=== PATIENT | female | born 1955 | race Caucasian/White ===

== ENCOUNTER 2019-04-15 08:58 | Outpatient (CLI) | payer OTHER, SELFPAY ==
--- NOTE | ~2019-04-15 | MM_ITS ---
EXAMINATION: MM screening nikunj BI w reyna HISTORY: Screening mammogram TECHNIQUE: Craniocaudal and mediolateral oblique 3-D tomosynthesis images were obtained and synthetic 2-D images were generated. CAD analysis was submitted and interpreted. COMPARISON: No prior mammogram is available for comparison at this institution. BREAST PARENCHYMAL COMPOSITION: There are scattered areas of fibroglandular density. FINDINGS: There is asymmetric density in the upper central right breast at mid depth. Diagnostic righ t mammogram is recommended, with ultrasound if required. Otherwise there is no evidence of suspicious mass, calcification, or architectural distortion to sugg est malignancy in either breast. There has been no suspicious interval change. IMPRESSION: 1. Asymmetry on the right 2. Diagnostic right mammogram is recommended, with ultrasound if required BI-RADS Category 0: Incomplete: Needs additional imaging evaluation. Reviewed, dictated and finalized at location A. [employer]
== END 2019-04-15 08:59 | disposition home or self-care (01) ==
PROVIDERS: PCP Nurse Practitioner; Visit Provider Nurse Practitioner
DX: Z12.31 Encounter for screening mammogram for malignant neoplasm of breast (principal)
CPT/HCPCS: 77063; 77067

== ENCOUNTER 2019-04-28 08:45 | Outpatient (CLI) | payer OTHER, SELFPAY ==
--- NOTE | ~2019-04-28 | MMUS_ITS ---
EXAMINATION: MM diagnostic nikunj RT w reyna, US breast RT limited HISTORY: Previous lung back to June right breast for benign mass. TECHNIQUE: Additional 3-D tomosynthesis images of the right breast were performed and synthetic 2-D i mages were generated. CAD analysis was submitted and interpreted. High resolution right breast ultras ound was performed. COMPARISON: Comparison to multiple prior studies sequentially, with oldest reviewed study dated 04/01. FINDINGS: MAMMOGRAPHIC FINDINGS: Breast composed of scattered areas of fibroglandular density. Focal asymmetry in the upper central as pect of the right breast is reidentified. No suspicious calcifications. No discrete mass. ULTRASOUND: Right breast ultrasound: At T10-11 o'clock, 10 cm from the nipple in the area of previous scarring there is heterogeneous hypo echoic soft tissue with posterior shadowing. This likely corresponds to the mammographic finding and most likely represents scarring/fibrosis from previous lumpectomy. At 3:00, 4 cm from the nipple, the re is an oval circumscribed hypoechoic mass measuring 7 x 3 x 5 mm. No significant posterior features . There are internal calcifications. No internal vascularity. IMPRESSION: 1. Probable benign findings of the right breast. 2. Recommend 6 month follow-up diagnostic right mammogram and ultrasound. BI-RADS category 3, probably benign findings. Reviewed, dictated and finalized at location A. IMPRESSION: 1. Probable benign findings of the right breast. 2. Recommend 6 month follow-up diagnostic right mammogram and ultrasound. BI-RADS category 3, probably benign findings.
== END 2019-04-28 08:46 | disposition home or self-care (01) ==
PROVIDERS: PCP Nurse Practitioner
DX: R92.8 Other abnormal and inconclusive findings on diagnostic imaging of breast (principal)
CPT/HCPCS: 76642; 77061; 77065; G0279

== ENCOUNTER 2019-12-11 09:47 | Outpatient (CLI) | payer OTHER, SELFPAY ==
--- NOTE | ~2019-12-11 | MMUS_ITS ---
EXAMINATION: MM diagnostic nikunj RT w reyna, US breast RT limited HISTORY: Six-month follow-up for probably benign right breast mass TECHNIQUE: Craniocaudal, mediolateral, and mediolateral oblique 3-D tomosynthesis images of the right breast were performed and synthetic 2-D images were generated. Spot compression views are also obtai jaya. CAD analysis was submitted and interpreted. High resolution limited right breast ultrasound was performed. COMPARISON: 04/28/2019, 04/15/2019, 04/01/2017, 08/31/2015, 07/06/2014, 11/21/2012 BREAST PARENCHYMAL COMPOSITION: There are scattered areas of fibroglandular density. FINDINGS: MAMMOGRAPHIC FINDINGS: An asymmetry in the middle third of the upper breast has a stable appearance compared to multiple eddie or examinations, consistent with a benign finding. Also present are stable masses in the middle third of the inner breast at the 2:00 and 3:00 locations. There is no suspicious mass, calcification, or a rchitectural distortion. ULTRASOUND: There is a stable 7 mm x 3 mm oval, circumscribed, parallel, hypoechoic mass with no posterior featur es or internal vascularity at the 3:00 location 4 cm from the nipple. IMPRESSION: 1. Stable, probably benign right breast mass. 2. Recommend 6 month follow-up right diagnostic mammogram and ultrasound. BI-RADS category 3, probably benign findings. Reviewed, dictated and finalized at location A. IMPRESSION: 1. Stable, probably benign right breast mass. 2. Recommend 6 month follow-up right diagnostic mammogram and ultrasound. BI-RADS category 3, probably benign findings.
== END 2019-12-11 09:48 | disposition home or self-care (01) ==
PROVIDERS: PCP Nurse Practitioner; Visit Provider Nurse Practitioner
DX: R92.8 Other abnormal and inconclusive findings on diagnostic imaging of breast (principal)
CPT/HCPCS: 76642; 77061; 77065; G0279

== ENCOUNTER 2020-05-31 09:02 | Outpatient (CLI) | payer OTHER, SELFPAY ==
--- NOTE | ~2020-05-31 | MMUS_ITS ---
EXAMINATION: MM diagnostic nikunj RT w reyna, US breast RT limited HISTORY: Six-month follow-up for probably benign right breast mass TECHNIQUE: Craniocaudal, mediolateral, and mediolateral oblique 3-D tomosynthesis images of the right breast were performed and synthetic 2-D images were generated. CAD analysis was submitted and interp reted. High resolution limited right breast ultrasound was performed. COMPARISON: 12/11/2019, 04/28/2019, 04/15/2019 BREAST PARENCHYMAL COMPOSITION: There are scattered areas of fibroglandular density. FINDINGS: MAMMOGRAPHIC FINDINGS: The previously described asymmetry in the middle third of the central breast is decreased in conspicu ity when compared to the prior examinations. A stable obscured, equal density mass is present in the middle third of the inner breast at the 3:00 location. No new mass, calcification, or architectural d istortion are identified ULTRASOUND: A 5 mm x 3 mm oval, circumscribed, parallel, hypoechoic mass with no posterior features or internal v ascularity at the 3:00 location 4 cm from the nipple is stable slightly decreased in size since the p rior examination. There has been no suspicious interval change. IMPRESSION: 1. Probably benign right breast mass. 2. Given one year of interval stability, recommend 12 month followup right diagnostic mammogram and u ltrasound. BI-RADS category 3, probably benign findings. Reviewed, dictated and finalized at location A. IMPRESSION: 1. Probably benign right breast mass. 2. Given one year of interval stability, recommend 12 month followup right diag nostic mammogram and ultrasound. BI-RADS category 3, probably benign findings.
== END 2020-05-31 09:03 | disposition home or self-care (01) ==
PROVIDERS: PCP Nurse Practitioner; Visit Provider Nurse Practitioner
DX: R92.8 Other abnormal and inconclusive findings on diagnostic imaging of breast (principal)
CPT/HCPCS: 76642; 77061; 77065; G0279

== ENCOUNTER 2020-07-25 12:55 | Outpatient (CLI) | payer OTHER, SELFPAY ==
--- NOTE | ~2020-07-25 | MM_ITS ---
EXAMINATION: MM screening nikunj BI w reyna HISTORY: Screening mammogram TECHNIQUE: Craniocaudal and mediolateral oblique 3-D tomosynthesis images were obtained and synthetic 2-D images were generated. CAD analysis was submitted and interpreted. COMPARISON: 05/31/2020, 12/11/2019, 04/28/2019, 04/15/2019, 04/01/2017 BREAST PARENCHYMAL COMPOSITION: There are scattered areas of fibroglandular density. FINDINGS: There is no evidence of suspicious mass, calcification, or architectural distortion to sugg est malignancy in either breast. There has been no suspicious interval change. IMPRESSION: 1. No mammographic evidence of malignancy. 2. Recommend routine screening mammography in one year. BI-RADS Category 1: Negative Reviewed, dictated and finalized at location A.
== END 2020-07-25 12:56 | disposition home or self-care (01) ==
LOC: CHSIMG 12:56
PROVIDERS: PCP Nurse Practitioner; Visit Provider Nurse Practitioner
DX: Z12.31 Encounter for screening mammogram for malignant neoplasm of breast (principal)
CPT/HCPCS: 77063; 77067

== ENCOUNTER 2021-11-01 11:44 | Outpatient (CLI) | payer MEDICARE, SELFPAY ==
--- NOTE | ~2021-11-01 | MM_ITS ---
EXAMINATION: MM screening [facility] BI w reyna HISTORY: Screening mammogram TECHNIQUE: Craniocaudal and mediolateral oblique 3-D tomosynthesis images were obtained and synthetic 2-D images were generated. CAD analysis was submitted and interpreted. COMPARISON: 07/25/2020, 05/31/2020, 12/11/2019, 04/28/2019 BREAST PARENCHYMAL COMPOSITION: There are scattered areas of fibroglandular density. FINDINGS: RIGHT BREAST: There is no suspicious mass, calcification, or architectural distortion to suggest sonia gnancy. There has been no significant interval change. LEFT BREAST: Asymmetry is present in the far posterior third of the breast in line with the nipple ax is on the mediolateral oblique view. IMPRESSION: 1. Left breast asymmetry. 2. Additional mammographic views and possible breast ultrasound are recommended. BI-RADS Category 0: Incomplete: Needs additional imaging evaluation. Reviewed, dictated and finalized at location A. IMPRESSION: 1. Left breast asymmetry. 2. Additional mammographic views and possible breast ultrasound are recommended . BI-RADS Category 0: Incomplete: Needs additional imaging evaluation.
== END 2021-11-01 11:45 | disposition home or self-care (01) ==
LOC: CHSIMG 11:46
PROVIDERS: PCP Family Medicine; Visit Provider Family Medicine
DX: Z12.31 Encounter for screening mammogram for malignant neoplasm of breast (principal)
CPT/HCPCS: 77063; 77067

== ENCOUNTER 2021-11-16 08:52 | Outpatient (CLI) | payer MEDICARE, SELFPAY ==
--- NOTE | ~2021-11-16 | MMUS_ITS ---
EXAMINATION: MM diagnostic nikunj LT w reyna, US breast LT limited HISTORY: Left breast asymmetry on screening mammogram TECHNIQUE: Additional 3-D tomosynthesis images of the left breast were performed and synthetic 2-D im ages were generated. CAD analysis was submitted and interpreted. High resolution limited left breast ultrasound was performed. COMPARISON: 11/01/2021, 07/25/2020, 04/15/2019 FINDINGS: MAMMOGRAPHIC FINDINGS: There is a subtle persistent asymmetry in the posterior third of the outer breast at the 3:00 locatio n 10 cm from the nipple. ULTRASOUND: There is an 8 mm x 4 mm oval, hypoechoic mass with possible angular margins, no posterior features, a nd no internal vascularity at the 2:00 location 9 cm from the nipple. IMPRESSION: 1. Indeterminate left breast mass. 2. Ultrasound-guided biopsy is recommended. BI-RADS category 4, suspicious findings. Reviewed, dictated and finalized at location B. IMPRESSION: 1. Indeterminate left breast mass. 2. Ultrasound-guided biopsy is recommended. BI-RADS category 4, suspicious findings.
== END 2021-11-16 08:53 | disposition home or self-care (01) ==
LOC: CHSIMG 08:53
PROVIDERS: PCP Family Medicine; Visit Provider Family Medicine
DX: R92.8 Other abnormal and inconclusive findings on diagnostic imaging of breast (principal)
CPT/HCPCS: 76642; 77061; 77065; G0279

== ENCOUNTER 2021-12-26 09:35 | Outpatient (CLI) | payer MEDICARE, SELFPAY ==
--- NOTE | ~2021-12-26 | MMUS_ITS ---
EXAMINATION: MM post biopsy invasive LT, US breast biopsy LT w image EXAMINATION: US GUIDED NEEDLE BIOPSY WITH VACUUM ASSISTANCE DATE: 12/26/2021 11:46 [employer] INDICATION: Left breast mass seen on prior ultrasound. Ultrasound-guided core biopsy is requested to evaluate for malignancy. TECHNIQUE AND FINDINGS: The risks and potential benefits of the procedure were discussed with the patient, and written inform ed consent was obtained. After sterile preparation of the left breast, 1% lidocaine was utilized for local anesthesia. 1% lidocaine with epinephrine was used for deep anesthesia. A 10G vacuum-assisted biopsy gun needle was advanced through to the outer edge of the region of inter est from a medial approach utilizing sonographic guidance. A total of 6 tissue core samples were obt ained through the lesion. An Inrad tissue marker clip was then placed at the biopsy site. Hemostasis was achieved. The patient tolerated procedure well and there was no evidence of immediate complication. The patien t was given verbal instructions partly is from the department. Left breast mammograms to document ti ssue marker clip placement. The tissue samples were submitted to surgical pathology for histologic an alysis. IMPRESSION: 1. Successful ultrasound-guided vacuum-assisted biopsy of left breast mass with tissue marker placem ent. Please refer to pathology report for histologic analysis. Reviewed, dictated and finalized at location A. [employer] IMPRESSION: 1. Successful ultrasound-guided vacuum-assisted biopsy of left breast mass wit h tissue marker placement. Please refer to pathology report for histologic anal ysis.
== END 2021-12-26 09:36 | disposition home or self-care (01) ==
PROVIDERS: PCP Family Medicine; Visit Provider Family Medicine
DX: N63.20 Unspecified lump in the left breast, unspecified quadrant (principal); R92.8 Other abnormal and inconclusive findings on diagnostic imaging of breast
CPT/HCPCS: 19083; 88305; 88342; A4648

== ENCOUNTER 2024-12-30 13:52 | Outpatient (CLI) | payer MEDICARE, SELFPAY ==
--- NOTE | ~2024-12-30 | MM_ITS ---
EXAMINATION: MM screening nikunj BI w reyna HISTORY: Screening TECHNIQUE: Craniocaudal and mediolateral oblique 3-D tomosynthesis images were obtained and synthetic 2-D images were generated. CAD analysis was submitted and interpreted. COMPARISON: Comparison to multiple prior studies sequentially, with oldest reviewed study dated , 04/15/2019 BREAST PARENCHYMAL COMPOSITION: Not Dense: There are scattered areas of fibroglandular density. FINDINGS: There is no evidence of suspicious mass, calcification, or architectural distortion to suggest malignancy in either breast. IMPRESSION: 1. No mammographic evidence of malignancy. 2. Recommend routine screening mammography in one year. BI-RADS Category 1: Negative Reviewed, dictated and finalized at location B. 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
--- OUTSIDE RECORDS SUMMARY | 2024-12-30 21:01 | XMS_ITS | Data Portability ---
Author Organization [facility] MARLEY[facility]inder Address [address] [place] [address] Care Team Providers Care Quality Rn Name Role Phone SHERYL CROSS Primary Care Provider [phone] Assessment No assessment recorded. Plan of Treatment Reminders Order Date Submit Date Provider Last Modified By Organization Details Last Modified Time Details Appointments None record ed. Lab CBC 2024 025 J LUIS [facility], [address] [place] [address], [address], 10:15:13 CMP, serum or plasma 2024 025 J LUIS [facility], [address] [place] [address], [place], [address], 10:15:11 lipid panel, serum 2024 025 J LUIS [facility], [address] [place] [address] 2, [place], [address], 10:15:10 HbA1c (hemog lobin A1c), blood 2024 025 J LUIS In-Office Order, Internal Use Only DO Not Attach Compendium DO Not Attach Compendium, Do Not Delete/merge, [id number] 15:55:22 influe nza virus A + B + SARS-C oV-2 (COVID 19) Ag panel, rapid IA, upper respir atory specim en 2024 025 luis armando In-Office Order, Internal Use Only DO Not Attach Compendium DO Not Attach Compendium, Do Not Delete/merge, [id number] 17:41:48 urinal ysis, dipsti ck 2023 [place] In-Office Order, Internal Use Only DO Not Attach Compendium DO Not Attach Compendium, Do Not Delete/merge, [id number] 10:26:14 Referral podiat rist referr al 2024 [facility] Arian Wallace DPM, [address] [place], [address], 5 11:30:32 gastro entero logist referr al 2024 [facility] [place], [address] [place] [address], [facility] [address], [place], [address], 5 11:30:25 Procedures None record ed. Surgeries None record ed. Imaging DEXA 2024 [facility], [address], [place], [place], [address], 5 15:44:02 MAMMO, screen ing, digita l, bilate ral 2024 025 [facility], [address] [place], [address], 5 09:54:33 MAMMO, screen ing, digita l, bilate ral 2023 024 [facility], [address] [place], [address], 5 11:28:29 Medication Orders amoxic illin 8[address] mg tablet [address] [facility] [place] [place], [address], 15:12:32 lisino pril [address] [facility] [place] [address] [place], [address], 15:12:38 Patient TargetsNo targets recorded. Patient Instructions Encounter Date Encounter Id Patient Instructions Last Modified By Organization Details Last Modified Time 01/06/2024 [id number] mammogram: about this test jnanney Not available 01/06/2024 10:07:10 A healthy lifestyle: care instructions jnanney Not available 01/06/2024 10:14:34 05/19/2024 [id number] A healthy lifestyle: care instructions jnanney Not available 05/19/2024 17:41:48 upper respirator y infection (cold): care instructions jnanney Not available 05/19/2024 17:41:48 06/01/2024 [id number] mammogram: about this test jnanney Not available 06/01/2024 15:23:53 learning about high blood pressure jnanney Not available 06/01/2024 14:58:31 body mass index: care instructions jnanney Not available 06/01/2024 14:58:31 learning about healthy weight jnanney Not available 06/01/2024 14:58:31 12/09/2024 [id number] A healthy lifestyle: care instructions jnanney Not available 12/09/2024 15:36:32 plantar warts: care instructions jnanney Not available 12/09/2024 15:43:17 12/24/2024 [id number] A healthy lifestyle: care instructions jnanney Not available 12/24/2024 17:01:09 lumbar spinal stenosis: care instructions jnanney Not available 12/24/2024 17:01:10 neurogenic bladder: care instructions jnanney Not available 12/24/2024 17:01:10 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 Referral for Screening for malignant neoplasm of colon Referring Physician: Sheryl Cross, Family Medicine, Encounter Date: 12/09/2024 Pediatrician Referral for Verr uca plantaris Referring Physician: Sheryl Nanney, Family Medicine, Encounter Date: 12/09/2024 Results Created Date Observation Date Name Description Value Unit Range Abnormal Flag Note LastModifiedBy Organization Detail LastModifiedTime 01/06/2001/06/2024 urina lysis , dipst ick Leukocytes Negati ve Not Available In-Office Order Internal Use Only DO Not Attach Compendium DO Not Attach Compendium, Do Not Delete/merge, 01/06/2024 10:13:07 01/06/2001/06/2024 urina lysis , dipst ick Nitrite negati ve Not Available In-Office Order Internal Use Only DO Not Attach Compendium DO Not Attach Compendium, Do Not Delete/merge, 01/06/2024 10:13:07 01/06/2001/06/2024 urina lysis , dipst ick Urobilinogen .2 Not Available In-Of fice Order Internal Use Only DO Not Attach Compendium DO Not Attach Compendium, Do Not Delete/merge, 01/06/2024 10:13:07 01/06/2001/06/2024 urina lysis , dipst ick Protein Negati ve Not Available In-Office Order Internal Use Only DO Not Attach Compendium DO Not Attach Compendium, Do Not Delete/merge, 01/06/2024 10:13:07 01/06/2001/06/2024 urina lysis , dipst ick pH 6.0 Not Available In-Office Order Internal Use Only DO Not Attach Compendium DO Not Attach Compendium, Do Not Delete/merge, 01/06/2024 10:13:07 01/06/2001/06/2024 urina lysis , dipst ick Blood Negati ve Not Available In-Office Order Internal Use Only DO Not Attach Compendium DO Not Attach Compendium, Do Not Delete/merge, 01/06/2024 10:13:07 01/06/2001/06/2024 urina lysis , dipst ick Specific [place] 1.020 Not Available In-Off ice Order Internal Use Only DO Not Attach Compendium DO Not Attach Compendium, Do Not Delete/merge, 01/05/2024 10:13:07 01/06/20 24 01/06/2024 urina lysis , dipst ick Ketone Negati ve Not Available In-Office Order Internal Use Only DO Not Attach Compendium DO Not Attach Compendium, Do Not Delete/merge, [facility] 01/06/2024 10:13:07 01/06/20 24 01/06/2024 urina lysis , dipst ick Bilirubin Negati ve Not Available In-Office Order Internal Use Only DO Not Attach Compendium DO Not Attach Compendium, Do Not Delete/merge, [facility] 01/06/2024 10:13:07 01/06/20 24 01/06/2024 urina lysis , dipst ick Glucose Negati ve Not Available In-Office Order Internal Use Only DO Not Attach Compendium DO Not Attach Compendium, Do Not Delete/merge, [facility] 01/06/2024 10:13:07 01/06/20 24 01/06/2024 urina lysis , dipst ick Appearance Clear Not Available In-Offi ce Order Internal Use Only DO Not Attach Compendium DO Not Attach Compendium, Do Not Delete/merge, [facility] 01/06/2024 10:13:07 01/06/20 24 01/06/2024 urina lysis , dipst ick Color Yellow Not Available In-Office Order Internal Use Only DO Not Attach Compendium DO Not Attach Compendium, Do Not Delete/merge, [facility] 01/06/2024 10:13:07 05/20/19 25 05/19/2024 influ nishant virus A + B + SARS- CoV-2 (COVI D19) Ag panel , rapid IA, upper respi rator y speci men Flu A negati ve Not Available In-Office Order Internal Use Only DO Not Attach Compendium DO Not Attach Compendium, Do Not Delete/merge, [facility] 05/19/2024 16:54:58 05/20/19 25 05/19/2024 influ nishant virus A + B + SARS- CoV-2 (COVI D19) Ag panel , rapid IA, upper respi rator y speci men Flu B negati ve Not Available In-Office Order Internal Use Only DO Not Attach Compendium DO Not Attach Compendium, Do Not Delete/merge, [id number] 05/19/2024 16:54:58 05/20/1905/19/2024 influ nishant virus A + B + SARS- CoV-2 (COVI D19) Ag panel , rapid IA, upper respi rator y speci men Rapid SARS CoV 2 Ag, QL IA, respiratory specimen negati ve Not Available In-Office Order Internal Use Only DO Not Attach Compendium DO Not Attach Compendium, Do Not Delete/merge, [id number] 05/19/2024 16:54:58 12/10/1912/10/2024 LIPID PANEL cholesterol, total 270 mg/dL 100-19 9 above high normal Not Available [facility] ([facility]) [address] [place], [address], 12/10/2024 10:15:10 12/10/19 25 12/10/2024 LIPID PANEL triglyceride s 184 mg/dL 0-149 above high normal Not Available [facility] ([facility]) [address] [place], [address], 12/10/2024 10:15:10 12/10/19 25 12/10/2024 LIPID PANEL HDL cholesterol 65 mg/dL >39 Not Available [facility] ([facility]) [address] [place], [address], 12/10/2024 10:15:10 12/10/19 25 12/10/2024 LIPID PANEL VLDL cholesterol teri 34 mg/dL 5-40 Not Available [facility] ([facility]) [address] [place], [address], 12/10/2024 10:15:10 12/10/19 25 12/10/2024 LIPID PANEL LDL chol calc ([facility]) 171 mg/dL 0-99 above high normal Not Available [facility] ([facility]) [address] [place], [address], 12/10/2024 10:15:10 10/29/12/09/2024 COMP. METAB OLIC PANEL (14) interpretati on: COMMEN T GFR estim ate at the follo wing level for >or=3 month s is class ified as follo ws: GFR WITH KIDNE Y DAMAG E WITHO UT KIDNE Y DAMAG E >or=9 0 Stage 1 Lola l 60-89 Stage 2 Decr eased GFR 30-59 Stage 3 Stage 3 15-29 Stage 4 Stage 4 <15 (or dialy sis) Stage 5 Stage 5 Estim ated GFR will over estim ate true GFR if serum creat inine is risin g as in acute renal failu re and will under estim ate true GFR if serum creat inine is decli orlin as in resol ving acute renal failu re. Addit ional infor zhou braun may be found at www.k doqi. org. Not Available [facility] ([facility]) [address] [place], [address], 12/10/2024 10:15:11 12/10/19 25 12/10/2024 COMP. METAB OLIC PANEL (14) glucose 95 mg/dL 70-99 Not Available [facility] ([facility]) [address] [place], [address], 12/10/2024 10:15:11 12/10/19 25 12/10/2024 COMP. METAB OLIC PANEL (14) BUN 14 mg/dL 8-27 Not Available [facility] ([facility]) [address] [place], [address], 12/10/2024 10:15:11 12/10/19 25 12/10/2024 COMP. METAB OLIC PANEL (14) creatinine 0.87 mg/dL 0.57-1 .00 Not Available [facility] ([facility]) [address] [place], [address], 12/10/2024 10:15:11 12/10/19 25 12/10/2024 COMP. METAB OLIC PANEL (14) eGFR 73 mL/mi n/1.7 3 >59 Not Available [facility] ([facility]) [address] [facility], [place], [address], 12/10/2024 10:15:11 12/10/19 25 12/10/2024 COMP. METAB OLIC PANEL (14) BUN/creatini ne ratio 16 12-28 Not Available [facility] ([facility]) [address] [facility], [place], [address], 12/10/2024 10:15:11 12/10/19 25 12/10/2024 COMP. METAB OLIC PANEL (14) sodium 139 mmol/ L 134-14 4 Not Available [facility] ([facility]) [address] [facility], [place], [address], 12/10/2024 10:15:11 12/10/19 25 12/10/2024 COMP. METAB OLIC PANEL (14) potassium 4.2 mmol/ L 3.5-5. 2 Not Available [facility] ([facility]) [address] [facility], [place], [address], 12/10/2024 10:15:11 12/10/19 25 12/10/2024 COMP. METAB OLIC PANEL (14) chloride 103 mmol/ L 96-106 Not Available [facility] ([facility]) [address] [facility], [place], [address], 12/10/2024 10:15:11 12/10/19 25 12/10/2024 COMP. METAB OLIC PANEL (14) carbon dioxide, total 24 mmol/ L 20-29 Not Available [facility] ([facility]) [address] [facility], [place], [address], 12/10/2024 10:15:11 12/10/19 25 12/10/2024 COMP. METAB OLIC PANEL (14) calcium 9.5 mg/dL 8.7-10 .3 Not Available [facility] ([facility]) [address] [facility], [place], [address], 12/10/2024 10:15:11 12/10/19 25 12/10/2024 COMP. METAB OLIC PANEL (14) protein, total 7.1 g/dL 6.0-8. 5 Not Available [facility] ([facility]) [address] [facility], [place], [address], 12/10/2024 10:15:11 12/10/19 25 12/10/2024 COMP. METAB OLIC PANEL (14) albumin 4.6 g/dL 3.9-4. 9 Not Available [facility] ([facility]) [address] [facility], [place], [address], 12/10/2024 10:15:11 12/10/19 25 12/10/2024 COMP. METAB OLIC PANEL (14) globulin, total 2.5 g/dL 1.5-4. 5 Not Available [facility] ([facility]) [address] [facility], [place], [address], 12/10/2024 10:15:11 12/10/19 25 12/10/2024 COMP. METAB OLIC PANEL (14) bilirubin, total 0.4 mg/dL 0.0-1. 2 Not Available [facility] ([facility]) [address] [facility], [place], [address], 12/10/2024 10:15:11 12/10/19 25 12/10/2024 COMP. METAB OLIC PANEL (14) alkaline phosphatase 93 IU/L 49-135 Not Available [facility] ([facility]) [address] [facility], [place], [address], 12/10/2024 10:15:11 12/10/19 25 12/10/2024 COMP. METAB OLIC PANEL (14) AST (SGOT) 32 IU/L 0-40 Not Available [facility] ([facility]) [address] [facility], [place], [address], 12/10/2024 10:15:11 12/10/1912/10/2024 COMP. METAB OLIC PANEL (14) ALT (SGPT) 44 IU/L 0-32 above high normal Not Available [facility] ([facility]) [address] [facility], [place], [address], 12/10/2024 10:15:11 12/10/19 25 12/10/2024 CARDI OVASC ULAR REPOR T interpretati on Note Suppl ement al repor t is avail able. Not Available [facility] ([facility]) [address] [facility], [place], [address], 12/10/2024 10:15:12 12/10/1912/10/2024 CARDI OVASC ULAR REPOR T pdf . Not Available [facility] ([facility]) [address] [facility], [place], [address], 12/10/2024 10:15:12 12/10/1912/10/2024 CBC, PLATE LET, NO DIFFE RENTI AL WBC 7.4 x10e3 /uL 3.4-10 .8 Not Available [facility] ([facility]) [address] [facility], [place], [address], 12/10/2024 10:15:13 12/10/1912/10/2024 CBC, PLATE LET, NO DIFFE RENTI AL RBC 4.18 x10e6 /uL 3.77-5 .28 Not Available [facility] ([facility]) [address] [facility], [place], [address], 12/10/2024 10:15:13 12/10/1912/10/2024 CBC, PLATE LET, NO DIFFE RENTI AL hemoglobin 15.3 g/dL 11.1-1 5.9 Not Available [facility] ([facility]) [address] [facility], [place], [address], 12/10/2024 10:15:13 12/10/19 25 12/10/2024 CBC, PLATE LET, NO DIFFE RENTI AL hematocrit 44.1 % 34.0-4 6.6 Not Available [facility] ([facility]) [address] [facility], [place], [address], 12/10/2024 10:15:13 12/10/1912/10/2024 CBC, PLATE LET, NO DIFFE RENTI AL MCV 106 fL 79-97 above high normal Not Available [facility] ([facility]) [address] [facility], [place], [address], 12/10/2024 10:15:13 12/10/1912/10/2024 CBC, PLATE LET, NO DIFFE RENTI AL MCH 36.6 pg 26.6-3 3.0 above high normal Not Available [facility] ([facility]) [address] [facility], [place], [address], 12/10/2024 10:15:13 12/10/1912/10/2024 CBC, PLATE LET, NO DIFFE RENTI AL MCHC 34.7 g/dL 31.5-3 5.7 Not Available [facility] ([facility]) [address] [facility], [place], [address], 12/10/2024 10:15:13 12/10/1912/10/2024 CBC, PLATE LET, NO DIFFE RENTI AL RDW 12.0 % 11.7-1 5.4 Not Available [facility] ([facility]) [address] [facility], [place], [address], 12/10/2024 10:15:13 12/10/1912/10/2024 CBC, PLATE LET, NO DIFFE RENTI AL platelets 282 x10e3 /uL 150-45 0 Not Available [facility] ([facility]) [address] [facility], [place], [address], 12/10/2024 10:15:13 12/10/19 25 12/09/2024 HbA1c (hemo globi n A1c), blood HbA1C 5.6 % Not Available In-Office Order Internal Use Only DO Not Attach Compendium DO Not Attach Compendium, Do Not Delete/merge, [id number] 12/09/2024 15:34:58 12/31/1912/30/2024 sara CESPEDES, sherly al, leticia fierro No observ ation record ed. [facility] [address] [place], [address], 12/30/2024 20:31:17 Result Notes None recorded. Problems No Known Problems Medical Equipment None Reported. Allergies No known drug allergies Medications Name Sig Start Date Stop Date Status Note LastModified by Organization Details LastModified Time atorvastati n 20 mg tablet TAKE 1 TABLET BY MOUTH ONCE DAILY active Not Available Not Available No t Available lisinopril 20 mg tablet TAKE 1 TABLET BY MOUTH ONCE DAILY FOR 90 DAYS 12/09 completed did not take Not Available Not Available Not Available amoxicillin 875 mg tablet TAKE 1 TABLET BY MOUTH EVERY 12 HOURS FOR 10 DAYS 12/09 completed Not Available Not Available Not Available gabapentin 300 mg capsule Take 1 capsule by mouth 4 times daily 2024 active Not Available Not Available Not Avai lable methylpredn isolone 4 mg tablets in a dose pack TAKE BY MOUTH DIRECTED ON INSIDE OF PACKAGE 07/31 completed Not Available Not Available Not Available azithromyci n 500 mg tablet TAKE 1 TABLET BY MOUTH ONCE DAILY FOR 3 DAYS 01/05 completed Not Available Not Available Not Available ezetimibe 10 mg tablet TAKE 1 TABLET BY MOUTH ONCE DAILY 07/18 completed Not favio agudelo sn't have any Not Available Not Available Not Available fenofibrate 160 mg tablet TAKE 1 TABLET BY MOUTH ONCE DAILY FOR 90 DAYS 01/05 completed Not Available Not Available Not Available oxygen 12/24 completed Not Available Not Available Not Available Vitals Date Recorded Body height Body mass index (BMI) Body weight Oxygen saturation Oxygen saturation in Arterial blood by Pulse oximetry Heart rate Respiratory rate Body temperature Systolic And Diastolic Provider Name and Address Organization Details Last Updated DateTime 154.94 cm 27.6 kg/m2 32114.4 9 g 97 % 97 % 83 /min 14 /min 98.1 [degF] 144/84 mm[Hg] Roseanne Burns MA [facility] 5 17:01:28 Date Recorded Body height Body mass index (BMI) Body weight Oxygen saturation Oxygen saturation in Arterial blood by Pulse oximetry Heart rate Systolic And Diastolic Provider Name and Address Organization Details Last Updated DateTime 5 154.94 cm 30.4 kg/m2 25686.3 7 g 97 % 97 % 78 /min 150/100 mm[Hg] Shelley Figueroa MA [facility] 5 14:48:39 Date Recorded Body height Body mass index (BMI) Body weight Oxygen saturation Oxygen saturation in Arterial blood by Pulse oximetry Heart rate Systolic And Diastolic Provider Name and Address Organization Details Last Updated DateTime 5 154.94 cm 29.9 kg/m2 70933.5 9 g 97 % 97 % 103 /min 132/82 mm[Hg] MAINOR Fields [facility] 5 15:13:49 Date Recorded Body height Body mass index (BMI) Body weight Oxygen saturation Oxygen saturation in Arterial blood by Pulse oximetry Heart rate Systolic And Diastolic Provider Name and Address Organization Details Last Updated DateTime 5 154.94 cm 29.9 kg/m2 54902.5 9 g 98 % 98 % 78 /min 124/80 mm[Hg] MAINOR Fields [facility] 5 16:15:11 Date Recorded Body height Body mass index (BMI) Body weight Oxygen saturation Oxygen saturation in Arterial blood by Pulse oximetry Heart rate Systolic And Diastolic Provider Name and Address Organization Details Last Updated DateTime 4 154.94 cm 28.7 kg/m2 33270.0 4 g 97 % 97 % 84 /min 140/86 mm[Hg] Shelley Figueroa MA [facility] 4 10:03:59 Social History Question Answer Notes LastModified by Organizat ion Details LastModified Time Tobacco Smoking Status Current Every Day Smoker Angie Bolton MA [facility], [facility] 07/17/2022 12:03:27 Are You Blind Or Do You Have Difficulty Seeing? No Information not available 07/17/2022 What Is Your Level Of Caffeine Consumption? Moderate 1 Cup A Day Information not available 07/17/2022 In The 14 Days Before Symptom Onset, Have You Had Close Contact With A Laboratory-confir med COVID-19 While That Case Was Ill? No Information not available 07/17/2022 In The 14 Days Before Symptom Onset, Have You Had Close Contact With A Person Who Is Under Investigation For COVID-19 While That Person Was Ill? No Information not available 07/17/2022 Have You Been To An Area Known To Be High Risk For COVID-19? No Information not available 07/17/2022 Are You Deaf Or Do You Have Serious Difficulty Hearing? No Information not available 07/17/2022 What Type Of Diet Are You Following? REGULAR Information not available 07/17/2022 Are There Any Guns Present In Your Home? No Information not available 07/17/2022 What Was The Date Of Your Most Recent Tobacco Screening? 12/24/2024 Information not available 12/24/2024 How Many Children Do You Have? 0 Information not available 07/17/2022 What Is Your Relationship Status? Information not available 07/17/2022 Do You Use Your Seat Belt Or Car Seat Routinely? Yes Information not available 07/17/2022 Are You Sexually Active? Yes Information not available 07/17/2022 Do You Have Smoke And Carbon Monoxide Detectors In Your Home? Yes Information not available 07/17/2022 Are You Passively Exposed To Smoke? No Information no t available 07/17/2022 How Much Tobacco Do You Smoke? 1 PPD Little Less Information not available 07/17/2022 Do You Use Sunscreen Routinely? No Information not available 07/17/2022 Has Tobacco Cessation Counseling Been Provided? Yes Information not available 07/17/2022 On What Date Was Tobacco Cessation Counseling Provided? 12/24/2024 Information not available 12/24/2024 Sex: Female Functional Status Question Answer Note LastModified by Organizat ion Details LastModified Time Do you use any illicit or recreational drugs? No Information not available 07/17/2022 Do you or have you ever used any other forms of tobacco or nicotine? No [email or web address] Information not available 01/06/2024 What is your level of alcohol consumption? Occasional Information not available 07/17/2022 Are you currently employed? Yes Information not available 07/17/2022 Are you able to care for yourself independently? Yes Information not available 07/17/2022 What is your occupation? [employer] Information not available 07/17/2022 What is your exercise level? None Information not available 07/17/2022 Mental Status Question Answer Note LastModified by Organization D etails LastModified Time Do you feel stressed (tense, restless, nervous, or anxious, or unable to sleep at night)? [id number] Information not available 07/17/2022 Family History Relationship Description Onset Age of this Age Resolved Age Notes LastModified by Organization Details LastModified Time Brother Diabetes mellitus [email or web address] Not available 07/2022 12:02:20 Medical History Condition Response Coronary Artery Disease N Other N Atrial Fibrillation N High Blood Pressure N Thyroid Problems N Kidney or Bladder Problems N Depression N COPD N Blood Clots N GI Problems N Skin Problems N Eating Disorder N Anemia N Heart Attack (OK) N Diabetes N Anxiety Disorder N Muscle, Joint, or Bone Problems N Seizures/Epilepsy N Acid Reflux (GERD) N Cancer N Stroke N Allergies N Asthma N ADHD N Substance Abuse N High Cholesterol Y Hepatitis N Liver Disease N Schizophrenia N Headaches N Osteoporosis N Heart Failure N Gynecological History Statement/Question Response Date of Last Mammogram Obstetrics History GPAL:G 0 P 0 0 0 0 Past Encounters Encounter ID Performer Location Encounter Start Date Encounter Closed Date Diagnosis/Indication Diagnosis SNOMED-CT Code Diagnosis ICD10 Code Diagnosis IMO Codes Diagnosis Note [id number] Sheryl Cross PA-C [facility] [address] [place] [address] 07/17/2022 11:47:22 07/18/2022 08:42:39 Mixed hyperlipidemia 022591809 E78.2 Plantar wa rt of left foot 7215047671 0649866 B07.0 Overweight 536116786 E66 .3 Acute bron chitis with bronchospasm 57564864 J20.8 [id number] Luc Michelle MD [facility] [address] [place] [address] 07/31/2022 13:44:53 08/01/2022 08:40:22 Mixed hyperlipidemia 862129963 E78.2 Spinal giovanni nosis of lumbar region 51536601 M48.834 [id number] Sheryl Cross PA-C [facility] [address] [place] [address] 03/01/2023 14:33:48 03/04/2023 16:50:41 Lumbar radiculopathy 117000051 M54.16 History of spinal fusion 0630664831 9107 Z98.1 Overweight 465317401 E66 .3 [id number] Luc Michelle MD [facility] [address] [place] [address] 07/23/2023 14:12:45 07/24/2023 08:01:47 Acute upper respiratory infection 46880572 J00 Overweight 075572223 E66 .3 Essential hypertension 75264243 I10 Lumbar radiculopathy 128 455611 M54.16 hx of previous fusion [id number] Luc Michelle MD [facility] [address] [place] [address] 01/06/2024 09:54:22 01/14/2024 12:00:33 Screening mammography 87880829 Z12.31 Pain radia ting to right flank 127176086 R10.11 Overweight 321234976 E66 .3 [id number] Luc Michelle MD [facility] [address] [place] [address] 05/19/2024 16:49:50 05/20/2024 15:17:34 Nasal congestion 49543301 R09.81 Influenza- like illness 95323625 B34.9 Overweight 942256260 E66 .3 Upper resp iratory infection 02721392 J00 [id number] Luc Michelle MD [facility] [address] [place] [address] 06/01/2024 14:30:01 06/05/2024 07:47:13 Screening mammography 21878926 Z12.31 5984981 Recurrent acute maxillary sinusitis [id number] 1662388 J01.01 9989906 Essential hypertension 49522715 I10 13498 BP too high..star t this and follow up in 2 weeks Body mass index 30+ - obesity 796582020 E66.9 5357263 [id number] Sheryl Cross PA-C [facility] [address] [place] [address] 12/09/2024 15:03:59 12/11/2024 14:32:09 Lumbosacral radiculopathy 2612364 M54.17 94252 hx of previous fusion Screening for osteoporosis 109735718 Z13.820 898972 post menopausal Screening for malignant neoplasm of colon 610041200 Z12.11 898417 Mixed hyperlipidemia 267 425929 E78.2 05114 Overweight in adulthood with body mass index of 25 or more but less than 30 576166537 E66.3 Z68.29 1494120276 Verruca plantaris 828034 08 B07.0 13138 [id number] Sheryl Cross PA-C [facility] [address] [place] [address] 12/24/2024 15:44:05 12/25/2024 15:37:10 Spinal stenosis of lumbar region 30404381 M48.062 320849 Neurogenic urinary bladder 968602308 N31.9 146443 Overweight in adulthood with body mass index of 25 or more but less than 30 264757094 E66.3 Z68.29 [id number] Health Concerns Section Related Observation LastModified by Organization Detai ls LastModified Time None Recorded Concern Status LastModified by Organization Details LastModified Time None Recorded Advance Directives Directive None Recorded Payers Insurance Date Sequence Insurance Name Policy Number Policy Dixon Covered Member ID Dixon Member ID Guarantor Name 12/23/2024 1 [facility] (MEDICARE REPLACEMENT/ ADVANTAGE - HMO) [id number] Prisca Pederson [id number] Prisca Pederson Notes Date Note Type Note Provider Name and Address Organization Details Recorded Time 01/06/2024 text/html ROS as noted in the HPI rt side abdominal pain...woke her from sleep...eventually went away...following night started again..lasted longer and was worse....last and Saturday ...never during the day Sheryl Cross PA-C Attn: Accounting, [address] [place], [address], [place] [facility] 01/06/2024 10:15:42 05/19/2024 text/html ROS as noted in the HPI flu like symptoms for a week... no cough but did have fever Sheryl Cross PA-C Attn: [address], [address] [place], [place], [address] [place] [address], [place] [facility] 05/19/2024 17:42:44 06/01/2024 text/html ROS as noted in the HPI was good for a couple days after URI then sinuses shut down again..slight headache..stuffed nose..productive cough no sore throat Sheryl Cross PA-C Attn: Accounting, [address] [place], [place], [address] [place] [address], [place] [facility] 06/01/2024 14:59:28 12/09/2024 text/html ROS as noted in the HPI needs gabapentin refilled...also did not take blood pressure meds and BP is still 132/82...needs labs..has mamm sched next week..needs colonoscopy...also plantars warts needs removed Sheryl Cross PA-C Attn: Accounting, [address] [place], [place], [address] [place] [address], [place] [facility] 12/09/2024 15:43:37 12/24/2024 text/html ROS as noted in the HPI has lumbar radiculopathy requiring neuro surgery...hx of prior fusion..now has arthritis....the thought of surgery is not great for her but her pain is such that she cannot sit for extended periods...also has a neurogenic bladder... Sheryl Cross PA-C Attn: [employer]ing, [address] [place], [place], [address] [place] [address], [place] [facility] 12/24/2024 17:01:44 OBGyn Episode No OBEpisode recorded.
--- OUTSIDE RECORDS SUMMARY | 2024-12-30 21:01 | XMS_ITS | Encounter Summary ---
Author Organization [employer] Care Team Providers Care Indian Blanket Weaver Name Role Phone Tay Juan Elver MITCHELL Primary Care Provider [phone] Encounter Details Date Type Department Care Team (Latest Contact Info) Description 12/30/2024 Travel Social History Tobacco Use Types Packs/Day Years Used Date Smoking Tobacco: Every Day Cigarettes Smokeless Tobacco: Never Alcohol Use Standard Drinks/Week Comments Yes 3 (1 standard drink = 0.6 oz pur e alcohol) Comments Unknown Sex and Gender Information Value Date Recorded Sex Assigned at Not on file Legal Sex Female 8:03 AM CDT Gender Identity Not on file Sexual Orientation Not on file documented as of this encounter Functional Status * Height and Weight Question Answer Date of Assessment Author Height 61 12/30/2024 10:47 AM Tonya Mahmood RN Weight 2528 12/30/2024 10:47 AM Tonya Mahmood RN BMI (Calculated) 29.9 12/30/2024 10:47 AM Tonya Mahmood RN Weight Method Stated 12/30/2024 10:47 AM Tonya Lopez RN * BSA (Calculated - sq m) Answer Date of Assessment Author 1.76 12/30/2024 10:47 AM Ryder Mahmood RN * Medical Decision Maker Assessment Answer Date of Assessment Author Patient is medical decision-maker 12/30/2024 10: 47 AM Tonya Mahmood RN * Power of Catalyst Impregnator for Health Care (POA-HC) Answer Date of Assessment Author No POA-HC form, education pr ovided and assistance offered. 12/30/2024 10:47 AM Tonya Mahmood RN * Do Not Resuscitate (DNR) Answer Date of Assessment Author No DNR form present 12/30/2024 10:47 AM Tonya Mahmood RN * [place] DNR/Physician Orders for Life Sustaining Treatment (POLST) or [place] Physician Orders for Scope of Treatment (POST) Answer Date of Assessment Author No POLST/POST form present 12/30/2024 10:[address] Tonya Gee RN * Living Will Answer Date of Assessment Author No Living Will present 12/30/2024 10:47 AM FIELD ENGINEER H andTonya RN * Question Answer Date of Assessment Author BMI (Calculated) 29.9 12/30/2024 10:47 AM Tonya Mahmood RN Weight Method Stated 12/30/2024 10:47 AM Tonya Lopez RN * Medical Decision Maker Assessment Answer Date of Assessment Author Patient is medical decision-maker 12/30/2024 10: 47 AM Tonya Mahmood RN * Power of Catalyst Impregnator for Health Care (POA-HC) Answer Date of Assessment Author No POA-HC form, education pr ovided and assistance offered. 12/30/2024 10:47 AM Tonya Mahmood RN * Do Not Resuscitate (DNR) Answer Date of Assessment Author No DNR form present 12/30/2024 10:47 AM Tonya Mahmood RN * [place] DNR/Physician Orders for Life Sustaining Treatment (POLST) or [place] Physician Orders for Scope of Treatment (POST) Answer Date of Assessment Author No POLST/POST form present 12/30/2024 10:47 AM C Tonya Jacob RN * Living Will Answer Date of Assessment Author No Living Will present 12/30/2024 10:47 AM FIELD ENGINEER H andTonya RN documented as of this encounter Mental Status * Question Answer Entry Date Author Weight 2528 12/30/2024 10:47 AM Tonya Mahmood RN Weight Method Stated 12/30/2024 10:47 AM Tonya Lopez RN * Medical Decision Maker Assessment Answer Entry Date Author Patient is medical decision-maker 12/30/2024 10: 47 AM Tonya Mahmood RN * Power of Catalyst Impregnator for Health Care (POA-HC) Answer Entry Date Author No POA-HC form, education pr ovided and assistance offered. 12/30/2024 10:47 AM FIELD ENGINEER Tonya Gee RN * Do Not Resuscitate (DNR) Answer Entry Date Author No DNR form present 12/30/2024 10:47 AM FIELD ENGINEER Tonya Gee RN * [place] DNR/Physician Orders for Life Sustaining Treatment (POLST) or [place] Physician Orders for Scope of Treatment (POST) Answer Entry Date Author No POLST/POST form present 12/30/2024 10:[address] Tonya Gee RN * Living Will Answer Entry Date Author No Living Will present 12/30/2024 10:47 AM FIELD ENGINEER H and, Tonya Morales RN documented in this encounter Plan of Treatment Upcoming Encounters Date Type Department Care Team (Late st Contact Info) Description 01/13/2025 9:00 AM FIELD ENGINEER [facility] [address] [place] [address] Ben Gunter MD [address] [address] 01/13/2025 9:00 AM FIELD ENGINEER - 01/13/2025 9:30 AM FIELD ENGINEER [facility] [address] [place] [address] Ben Gunter MD [address] [address] COLONOSCOPY Scheduled Procedures Name Priority Associated Diagnoses Date/Ti me COLONOSCOPY SCREENING 01/13/2025 9:00 AM FIELD ENGINEER documented as of this encounter Visit Diagnoses Not on filedocumented in this encounter Care Teams Indian Blanket Weaver Relationship Specialty Start Date End Date Juan Cross, PAC [address] [place] [address] PCP - General Physician Analysis Manager 12/10/24 documented as of this encounter
--- OUTSIDE RECORDS SUMMARY | 2024-12-30 21:01 | XMS_ITS | Patient Health Record ---
Author Organization [employer] [facility] Address [address] [place] [address] Care Team Providers Care Employment Programs Analyst Name Role Phone Xiomara Schrader M.D. Unavailable Unavailable Reason For Referral No Information Medications Medication SIG (Take, Route, Frequency, Duration) Notes Start Date End Date Status dexa scan DEXA Scan Dx: osteoporosis screening; Duration: 1 *please review for potential update for e-prescription and drug interaction check* 11/03/2012 Active Estrace 0.01 % (0.1 mg/g) Cream insert 1 gram by vaginal route 3 times per week Vaginal [id number] *please review for potential update for e-prescription and drug interaction check* 11/03/2012 Active Clindagel 1 % Gel apply a thin layer to the affected area(s) by topical route once daily External 1 05/26/2012 Active Plan Of Treatment No Information Insurance Providers Payer Name Payer Address Payer Phone Subscriber Number Group Number Insured Name Patient Relationship to Insured Coverage Start Date Coverage End Date [employer] [address] [place] [address] [id number] Prisca Pederson Self - patient is the insured 2015 [employer]BS [address] [place] [address] [phone] [id number] Prisca Pederson Self - patient is the insured 2011
--- OUTSIDE RECORDS SUMMARY | 2024-12-30 21:02 | XMS_ITS | Clinical Summary ---
Author Organization [facility] [address] [facility] [address] [address] [address] Phone Care Team Providers Care Retail Customer Service Representative Name Role Phone LauraJuan rock Primary Care Provider [phone] Allergies No known active allergies Medications atorvastatin (LIPITOR) 20 MG Tablet Take 20 mg by mouth daily. Active gabapentin (NEURONTIN) 300 MG Capsule Take 300 mg by mouth 4 times daily. Active multi-vitamins (Multi-Vitamin) Tablet Take 1 Tablet by mouth daily. Active Encounters Date Type Department Care Team Description 12/30/2024 Travel 12/10/2024 Telephone [facility] - Gastroenterology [facility] [address] [place] [address] Ben Gunter MD from Last 3 Months Family History Medical History Relation Name Comments Diabetes Brother Alcohol Abuse Father Schizophrenia Mother Relation Name Status Comments Brother Alive Father Mother Social History Tobacco Use Types Packs/Day Years Used Date Smoking Tobacco: Every Day Cigarettes Smokeless Tobacco: Never Tobacco Cessation:Ready to Q uit: Not Asked; Counseling Given: Not Answered Alcohol Use Standard Drinks/Week Comments Yes 3 (1 standard drink = 0.6 oz pur e alcohol) Comments Unknown Sex and Gender Information Value Date Recorded Sex Assigned at Not on file Legal Sex Female 8:03 AM CDT Gender Identity Not on file Sexual Orientation Not on file Last Filed Vital Signs Vital Sign Reading Time Taken Comments Blood Pressure - - Pulse - - Temperature - - Respiratory Rate - - Oxygen Saturation - - Inhaled Oxygen Concentration - - Weight 71.7 kg (158 lb) 12/30/2024 10:47 AM TOOL DESIGNER Height 154.9 cm (5' 1) 12/30/2024 10:47 AM TOOL DESIGNER Body Mass Index 29.85 12/30/2024 10:47 AM TOOL DESIGNER Plan of Treatment Upcoming Encounters Date Type Department Care Team (Late st Contact Info) Description 01/13/2025 9:00 AM TOOL DESIGNER [facility] [address] [place] [address] Ben Gunter MD 2 [address] [facility] [address] [id number] 01/13/2025 9:00 AM TOOL DESIGNER - 01/13/2025 9:30 AM TOOL DESIGNER [facility] [address] [place] [address] Ben Gunter MD 2 [facility] [place] [address] [address] COLONOSCOPY Scheduled Procedures Name Priority Associated Diagnoses Date/Ti me COLONOSCOPY SCREENING 01/13/2025 9:00 AM TOOL DESIGNER Health Maintenance Due Date Last Done Comments DEXA Bone Density 1955 Hepatitis C Virus (HCV) Screening 1955 Mammogram 1955 TdaP Immunization 1956 Varicella Immunization (1 of 2 - 13+ 2-dose series) 1969 Cologuard 2001 Colonoscopy 2001 Colorectal Cancer Screening 2001 Immunochemical Fecal Occult Blood 2001 Pneumococcal Immunization (5 0+ years) (1 of 1 - PCV) 2006 Zoster Immunization (1 of 2) 2006 Welcome to Medicare (IPPE) [id number] 02/12/2024 Influenza Immunization (#1) 2024 SARS-COV-2 Immunization ( - 2024- season) 2024 Respiratory Syncytial Virus (RSV) Immunization (Adult) (1 - 1-dose 75+ series) 08/28/2031 Hepatitis B Immunization Aged Out No longer eligible based on patient's age to complete this topic Human Papillomavirus (HPV) Immunization Aged Out No longer eligible b ased on patient's age to complete this topic Meningococcal Immunization (ACWY) Aged Out No longer eligible based on patient's age to complete this topic Rotavirus Immunization Aged Out No lo nger eligible based on patient's age to complete this topic Insurance [facility]IC[facility] Care Teams Retail Customer Service Representative Relationship Specialty Start Date End Date Juan Cross PAC [address] [place] [address] PCP - General Physician Java Application Developer 12/10/24
== END 2024-12-30 13:53 | disposition home or self-care (01) ==
LOC: CHSIMG 13:53
PROVIDERS: PCP Physician Assistant; Visit Provider Physician Assistant
DX: Z12.31 Encounter for screening mammogram for malignant neoplasm of breast (principal)
CPT/HCPCS: 77063; 77067